=== PATIENT | female | born 2005 ===

== ENCOUNTER 2025-05-04 09:50 | Emergency (ER) | payer BC, SELFPAY ==
--- NOTE | ~2025-05-04 | XR_ITS ---
EXAMINATION: XR CHEST CLINICAL INFORMATION: central chest pain COMPARISON: None available. TECHNIQUE: 2 views of the chest were obtained. FINDINGS: The cardiac, hilar, and mediastinal contours are normal. The lungs are clear bilaterally. There is no pneumothorax or pleural effusion. There is no focal osseous or soft tissue abnormality. XR/XR chest 2V IMPRESSION: Normal chest. Electronically signed by: Brian Cedeno MD 05/04/2025 10:26 AM EDT
--- NOTE | 2025-05-04 09:52 | ECG_ITS ---
Test Reason : cp Blood Pressure : */* mmHG Vent. Rate : 101 BPM Atrial Rate : 101 BPM P-R Int : 126 ms QRS Dur : 88 ms QT Int : 340 ms P-R-T Axes : 74 74 53 degrees QTcB Int : 440 ms Sinus tachycardia Otherwise normal ECG No previous ECGs available Referred By: Brianna Pathak Electronically Signed By: Luis Manuel Amin
[2025-05-04 10:07] VITALS: BP 00/00; PULSE 103; RESP 18; TEMP 36.6; O2SAT 100
--- NOTE | 2025-05-04 10:09 | ED.GENADULT ---
HPI - General Adult General Chief complaint: Abdominal Pain Stated complaint: CP, abd pain Time Seen by Provider: 05/04/25 12:10 Source: patient, family and RN notes reviewed Mode of arrival: ambulatory Limitations: no limitations History of Present Illness ED Provider: Reny Salguero PA-C HPI narrative: This is a 19 year old female with no known PMHx, presenting to the ED for evaluation of nausea, vomiting, and abdominal pain which started this morning. Pt states that she was feeling sick and attempted to practice lacrosse this morning and felt worse, developing nausea, vomiting, abdominal pain and chest burning sensation. She was evaluated at urgent care prior to arrival and received 8mg of sublingual zofran with minimal relief. They suggested her to come to the ED due to the multiple episodes of non-stopping vomiting. She describes persistent discomfort and a burning sensation of the chest and upper abdomen. Denies palpitations, diarrhea, constipation, headache, cough, shortness of breath, dizziness, or syncope. Last BM was this morning. No history of similar symptoms, recent illness, sick contacts, or significant medical history. Does report a history of marijuanna use, with her last usage being last night. No other drug use. No etoh use. Additionally reports feeling well last night, and consuming a chipotle bowl for dinner. No other complaints or concerns at this time. MD complaint: Abdominal pain, nausea, vomiting Onset (ago): hour(s) Radiation: non-radiation Pain Consistency: constant Relieving factors: none Exacerbating factors: none Treatments prior to arrival: other (zofran 8mg) Related Data Previous Rx's ?Medication ?Instructions ?Recorded ondansetron 4 mg disintegrating 4 mg PO Q6H PRN nausea and 05/04/25 tablet vomiting #12 tabs Allergies Allergy/AdvReac Type Severity Reaction Status Date / Time No Known Allergies Allergy Verified 05/04/25 10:09 Review of Systems Review of Systems: Constitutional : No Fever, No Chills ENT/Mouth : No sore throat, No Rhinorrhea Eyes: No Eye Pain, No Swelling, No Redness Cardiovascular : No Chest Pain, No SOB Respiratory : No Cough, No Sputum Gastrointestinal : + Nausea, +Vomiting, No Diarrhea, + abdominal Pain Genitourinary : No Dysuria, No Hematuria Musculoskeletal : No joint pain, No Myalgias, No Joint Swelling Skin : No Skin Lesions Neuro : No Weakness, No Numbness, No Headache All other systems reviewed and are negative Yes all other systems are reviewed and are negative Constitutional: Constitutional: Reports as per [facility] Past Medical History Attestation statement: The following information was validated with the patient. Social History Social History Advance Directives: No Advance Directives Information Provided: Yes Do you have a plan to hurt others: No Plan Physical Exam ED Vital Signs: Vital Signs - 24 hr 05/04/25 17:35 Temperature 98.4 F Pulse Rate 89 Respiratory Rate 17 Blood Pressure 124/68 Pulse Oximetry 100 Oxygen Delivery Method Room Air BMI result Body Mass Index 20.0 Const General: cooperative, acute distress, anxious, diaphoretic, ill appearing and tired appearing Orientation/consciousness: patient oriented x3 Limitations: no limitations HENMT Head: Yes normal to inspection, Yes normocephalic and Yes atraumatic Ears: hearing grossly normal bilaterally General nose exam: Normal external nose present Face and sinus: Yes normal facial exam Mouth: Normal oral and palatal mucosa present, oropharynx normal and moist mucous membranes Throat: Yes posterior oropharynx normal Eyes General: appearance normal, both eyes and all related structures Eyelids: Yes eyelids normal Conjunctivae: conjunctivae normal Sclerae: sclerae normal Pupils: Equal, round and reactive pupils present EOM: EOMs intact bilaterally Neck Neck: Yes normal visual inspection, Yes full ROM and Yes no lymphadenopathy Lymphatic: no lymphadenopathy noted Chest Chest palpation & inspection: normal inspection of the chest Resp Effort & Inspection: normal respiratory effort and able to speak in complete sentences Auscultation: clear to auscultation bilaterally, no crackles, no rales, no rhonchi and no wheezes Cardio Jugular venous distension: no JVD Rate: regular rate Rhythm: regular rhythm Heart sounds: S1 normal heart sound present and S2 normal heart sound present GI Other: Abdomen is soft, nontender, nondistended. Inspection: Yes normal to inspection Palpation (GI): Soft to palpation, nontender and no guarding Auscultation: normal bowel sounds Skin General skin exam: no rashes or lesions noted Trauma: no lacerations or abrasions Wounds: no wounds Neuro General: patient oriented x3 Cranial nerves: Yes Equal, round and reactive pupils present Extrem General: Yes normal to inspection Right upper extremity: normal to inspection Left upper extremity: normal to inspection Right lower extremity: normal to inspection Left lower extremity: normal to inspection Course Course Course Narrative: This is a Rapid Medical Examination (RME) performed by Roger Baird PA-C in triage. Full HPI, ROS, assessment and treatment plan per primary provider in the Main ED. Hx: 19 yo F here for eval of epigastric adominal pain described as a burning sensation radiating to her chest which began while at [employer] practice. assoc nausea and vomiting. seen at [facility], given 8mg zofran, attempted maalox however patient refused as she cannot tolerate PO. no sick contacts. denies any injury/ strike during practice. PE/vitals: uncomfortable appearing Plan: labs, viral swabs, ekg, cxr Medications Administered Discontinued Medications Generic Name Dose Route Start Last Admin Trade Name Freq PRN Reason Stop Dose Admin Diphenhydramine HCl 12.5 mg 05/04/25 12:21 05/04/25 12:56 Diphenhydramine Hcl 50 Mg/Ml Vial IVPUSH 05/04/25 12:22 12.5 mg ONCE ONE Administration Droperidol 0.625 mg 05/04/25 14:09 05/04/25 14:28 Droperidol 5 Mg/2 Ml Vial IVPUSH 05/04/25 14:10 0.625 mg ONCE ONE Administration Famotidine 20 mg 05/04/25 14:05 05/04/25 14:27 Famotidine/Pf 20 Mg/2 Ml Vial IVPUSH 05/04/25 14:06 20 mg ONCE ONE Administration Sodium Chloride 1,000 mls @ 999 mls/hr 05/04/25 12:17 05/04/25 13:57 Ns IV 05/04/25 13:17 Infused .Q1H1M ONE Infusion Acetaminophen 1,000 mg in 100 mls @ 400 mls/hr 05/04/25 14:05 05/04/25 14:42 Ofirmev IV 05/04/25 14:19 Infused ONCE ONE Infusion Sodium Chloride 1,000 mls @ 999 mls/hr 05/04/25 14:07 05/04/25 15:28 Ns IV 05/04/25 15:07 Infused .Q1H1M ONE Infusion Metoclopramide HCl 10 mg 05/04/25 12:21 05/04/25 12:56 Metoclopramide Hcl 10 Mg/2 Ml Vial IVPUSH 05/04/25 12:22 10 mg ONCE ONE Administration Medical Decision Making Medical Decision Making [facility] Narrative: This is a 19 year old female with no PMH, presenting to the ED for evaluation of sudden onset burning upper abdominal and chest pain that began this morning. Most likely diagnosis at this time is viral gastroenteritis or gastritis due to sudden onset of nausea and vomiting, elevated white blood cell counts, and self reported fever and chills. Gastroparesis considered due to cycling vomiting., but less likely due to abrupt onset. Cannabis hyperemesis syndrome considered due to cannabis consumption the night prior but less likely due to systemic symptoms and elevated white blood cell counts. GERD considered due to epigastric burning pain and vomiting, but less likely due to abrupt onset and systemic symptoms. 2:24 PM 05/04/2025 (Reny Salguero PA-C): Re-evaluated, not feeling any better, will medicate with tylenol, droperidol, and Pepcid. 5:21 PM 05/04/2025 (Reny Salguero PA-C): Patient is feeling much better after receiving all these medications, UA returns, noninfectious. Symptoms likely cyclical vomiting in nature and or gastroenteritis. She is tolerating p.o. without difficulty. No vomiting since droperidol. Patient feeling well enough to be discharged home. Patient given strict return precautions, mother and patient understand and agree with this plan. Patient stable for discharge. Differential Diagnosis Differential Diagnoses: The differential diagnosis associated with the presentation includes See above Admission/Observation Consideration of admission/observation: Escalation of care including admission/observation considered Lab Data [facility] Lab Attestation statement: I reviewed the patient's lab results. Slight leukocytosis at 11, likely reactive in nature, slightly hyperglycemic at 127 > non fasting. AST and ALT slightly elevated at 33 and 32, troponin with negative delta change. Patient not , urine does not appear to be infectious. COVID, flu, and strep negative. 05/04/25 10:05/04/25 10:29 Labs: Lab Results 05/04/25 05/04/25 05/04/25 Range/Units 10: 12:37 16:44 WBC 11.0 H (4.8-10.8) X10*3/uL RBC 4.23 (4.20-5.50) X10*6/uL Hgb 12.4 (12.0-16.0) g/dl Hct 37.4 (37.0-47.0) % MCV 88.4 (80.0-98.0) fL MCH 29.3 (27.0-33.0) pg MCHC 33.2 (31.0-35.0) g/dl RDW 12.4 (11.0-16.0) % Plt Count 221 (160-400) X10*3/uL MPV 9.7 (9.4-12.3) fL Immature Gran % (Auto) 0.3 (0.0-0.4) % Neut % (Auto) 81.1 H (45-73) % Lymph % (Auto) 13.6 L (20-40) % Perkins % (Auto) 4.6 (2-11) % Eos % (Auto) 0.1 (0-4) % Baso % (Auto) 0.3 (0-2) % Lymph # (Auto) 1.5 (1.2-4.9) X10*3/uL Perkins # (Auto) 0.5 (0.1-1.2) X10*3/uL Eos # (Auto) 0.0 (0.0-0.4) X10*3/uL Baso # (Auto) 0.0 (0.0-0.2) X10*3/uL Abs Immat Gran (auto) 0.03 (0.00-0.03) X10*3/uL Absolute Neuts (auto) 9.0 H (2.0-8.3) x10*3/uL Absolute Nucleated RBC 0.000 (0.0-0.012) X10*3/uL Nucleated RBC % (auto) 0.0 (0.0-0.2) /100WBC Sodium 139 (135-145) mmol/L Potassium 3.6 (3.3-5.1) mmol/L Chloride 108 (96-108) mmol/L Carbon Dioxide 20 L (22-29) mmol/L Anion Gap 15 (12-20) BUN 7 L (9-16) mg/dL Creatinine 0.68 (0.5-1.4) mg/dL Estim Creat Clear Calc 106.8 Estimated GFR > 60 Random Glucose 127 H (60-115) mg/dL Calcium 9.7 (8.4-10.2) mg/dL Magnesium 1.9 (1.6-2.6) mg/dL Total Bilirubin 0.3 (0.0-1.0) mg/dL AST 33 H (5-31) U/L ALT 32 H (0-31) U/L Alkaline Phosphatase 53 (39-117) U/L Troponin I High Sens 5.9 7.0 (<3.5-17.0) ng/L Total Protein 8.1 H (6.5-8.0) g/dL Albumin 4.8 (3.5-5.0) g/dL Lipase 13 (8-78) U/L Beta HCG, Quant < 2 mIU/mL Urine Color Yellow Urine Appearance Clear Urine pH 8.5 (5.0-9.0) Ur Specific [place] 1.025 (1.005-1.025) Urine Protein Negative (Neg-Trace) mg/dL Urine Glucose (UA) Negative (Negative) mg/dL Urine Ketones 40 (Negative) mg/dL Urine Blood Negative (Negative) Urine Nitrite Negative (Negative) Ur Leukocyte Esterase Negative (Negative) COVID-19 (JOSE CARLOS) Negative (Negative) COVID-19 Clin Com See Note Influenza Type A (SIRI) Negative (Negative) Influenza Type B (SIRI) Negative (Negative) Influenza A & B Note See Note S. pyogenes GrpA SIRI Negative (Negative) Independent Interpretation I performed an independent interpretation of an: EKG Interpretation: Age you sinus tachycardia at a ventricular rate of 101 beats per minute, MD interval 126, QT QTC 340/440, no STEMI. Radiology Impression Discussion of test interpretation with radiology: I have reviewed the radiologist's reading. Radiologist Impression: EXAMINATION: XR CHEST CLINICAL INFORMATION: central chest pain COMPARISON: None available. TECHNIQUE: 2 views of the chest were obtained. FINDINGS: The cardiac, hilar, and mediastinal contours are normal. The lungs are clear bilaterally. There is no pneumothorax or pleural effusion. There is no focal osseous or soft tissue abnormality. XR/XR chest 2V IMPRESSION: Normal chest. Electronically signed by: Brian Cedeno MD 05/04/2025 10:26 AM EDT External Record Review External record reviewed: Inpatient record, Office record, Outpatient record, Prior outpatient labs, Prior outpatient radiology, Primary care record and Outside ED record Discharge Plan Discharge Clinical Impression: Nausea & vomiting Patient Disposition: Home, Self-Care Instructions: Acute Nausea and Vomiting (ED), Cyclic Vomiting Syndrome (ED) Additional Instructions: You were seen in the emergency department after having nausea and vomiting. Your workup today was reassuring. You may be experiencing a stomach virus and or something called cyclical vomiting syndrome. Cyclical vomiting syndrome can be caused by marijuana use. Please avoid marijuana use as this can cause you to have the symptoms. Stick to a bland diet over the next several days. Avoid spicy or fried foods. Avoid dairy containing products. Drink plenty of fluids get plenty of rest. May take Zofran as needed for nausea. Use this only as directed. Please follow-up with the primary care physician. If any new or worsening symptoms occur including but not limited to recurrent nausea and vomiting, severe abdominal pain, severe chest pain, please seek emergent care. Prescriptions: New ondansetron 4 mg tablet,disintegrating 4 mg PO Q6H PRN (Reason: nausea and vomiting) Qty: 12 0RF Stand Alone Forms: Work/School Release Interventions: ED Discharge Assessment Last Done: 05/04/25 17:35 Discharge Date/Time: 05/04/25 17:36 Print Language: Pashto
[2025-05-04 10:37] LABS: MANUAL DIFF FLAG NO
[2025-05-04 10:39] LABS: Hematocrit 37.4 % (37.0-47.0); Hemoglobin 12.4 g/dl (12.0-16.0); Imm Gran Abs Auto 0.03 X10*3/uL (0.00-0.03); Imm Gran Pct Auto 0.3 % (0.0-0.4); Lymphocytes Absolute Auto 1.5 X10*3/uL (1.2-4.9); Mean Corpuscular HGB Conc 33.2 g/dl (31.0-35.0); Mean Corpuscular Hemoglobin 29.3 pg (27.0-33.0); Mean Corpuscular Volume 88.4 fL (80.0-98.0); NRBC Abs Auto 0.000 X10*3/uL (0.0-0.012); NRBC Pct Auto 0.0 /100WBC (0.0-0.2); Platelet Count 221 X10*3/uL (160-400); Red Blood Count 4.23 X10*6/uL (4.20-5.50); White Blood Count 11.0 X10*3/uL (4.8-10.8)
[2025-05-04 10:55] LABS: IDNOW Serial# 08D9AD1C; Strep A Nucleic Acid Negative (Negative)
[2025-05-04 10:56] LABS: COVID-19 Test Negative (Negative); IDNOW Serial# 55D5AD1C
[2025-05-04 10:57] LABS: IDNOW Serial# 58CA691E; Influenza B2 Negative (Negative)
[2025-05-04 11:00] LABS: Troponin-I High Sensitivity 5.9 ng/L (<3.5-17.0)
[2025-05-04 11:03] LABS: Alanine Aminotransferase 32 U/L (0-31); Albumin Level 4.8 g/dL (3.5-5.0); Alkaline Phosphatase 53 U/L (39-117); Anion Gap 15 (12-20); Aspartate Amino Transferase 33 U/L (5-31); Blood Urea Nitrogen 7 mg/dL (9-16); Calcium 9.7 mg/dL (8.4-10.2); Carbon Dioxide 20 mmol/L (22-29); Chloride 108 mmol/L (96-108); Creatinine Clr Calc Pharmacy 106.8; Estimated Glomerular Filt Rate > 60; Lipase 13 U/L (8-78); Magnesium 1.9 mg/dL (1.6-2.6); Potassium 3.6 mmol/L (3.3-5.1); Sodium 139 mmol/L (135-145); Total Protein 8.1 g/dL (6.5-8.0)
[2025-05-04 12:29] VITALS: BP 141/61; PULSE 83; RESP 18; TEMP 36.6; O2SAT 100
[2025-05-04 13:00] LABS: Troponin-I High Sensitivity 7.0 ng/L (<3.5-17.0)
[2025-05-04 14:50] VITALS: BP 125/78; PULSE 87; RESP 18; TEMP 36.8; O2SAT 99
--- OUTSIDE RECORDS SUMMARY | 2025-05-04 14:50 | XMS_ITS | Clinical Summary ---
Author Organization [facility] Address [address] [place] [address] Care Team Providers Care Drying And Winding Supervisor Name Role Phone Tommy Rogers Primary Care Provider [phone] Source Comments PLEASE NOTE, if this patient is a minor, it may be UNLAWFUL to discuss sensitive information that is contained in these records (such as FAMILY PLANNING, MENTAL HEALTH or SUBSTANCE ABUSE) with the minor patient's parent or other person without the patient's specific authorization.[facility] Allergies No known active allergies Medications No known medications Active Problems Problem Noted Date Diagnosed Date Encounter for routine child health examination without abnormal findings 03/11/2019 Weight loss observed on examination 03/11/2019 Overview (03/11/2019): 03/11/19 - Wt Readings from Last 2 Encounters: 03/11/19 137 lb 14.4 oz (62.6 kg) (85 %, Z= 1.05)* 03/05/18 152 lb (68.9 kg) (95 %, Z= 1.66)* * Growth percentiles are based on [facility] (Girls, 2-20 Years) data. Immunizations Immunization Administration Dates Next Due DTAP (DAPTACEL),5 PERTUSSIS ANTIGENS 03/2010,06/18/2006,07/09/2005,05/06,02/14/2005 HEP B, PED/ADOL ([id number]/RECOMBIVAX-PEDS) 07/09/2005,05/06/2005,02/14/2005,12/08 HPV 9 (Gardasil) 04/12/2019,03/11/2019 Hep A, Ped/adol, 2 Dose 03/11/2019,04/17/2018 Hib (HbOC) 06/18/2006, 5,05/06/2005,02/14 INFLUENZA, SEASONAL, INJECTABLE 05/30/20 08,05/26/2007,06/18/2006,07/09 IPV (IPOL) 09/26/2009, 5,05/06/2005,02/14 MENINGOCOCCAL MCV4P (MENACTRA) 02/14/2016 MMR (MMR II/Priorix) 09/26/2009,01/28/2006 PNEUMOCOCCAL CONJUGATE PCV 7 06/18/2006, 07/09/2005,05/06/2005,02/14 TDAP 02/14/2016 Varicella (Varivax), Live Vaccine 09/26/2009,05/2006 Family History Medical History Relation Name Comments Other (See Comments) Mother Relation Name Status Comments Father Alive Mother Alive Social History Tobacco Use Types Packs/Day Years Used Date Smoking Tobacco: Never Smokeless Tobacco: Never Alcohol Use Standard Drinks/Week Comments Never 0 (1 standard drink = 0.6 oz pur e alcohol) Social Connections Answer Date Recorded Social Connections and Isolation 0 03/08/2019 Financial Resource Strain Answer Date R ecorded Financial Resource Strain 0 2018 Stress Answer Date Recorded Stress 0 03/08/2019 Physical Activity Answer Date Recorded Physical Activity 0 03/08/2019 Food Insecurity Answer Date Recorded Food 0 03/08/2019 Transportation Needs Answer Date Record ed Transportation 0 03/08/2019 Housing Stability Answer Date Recorded Housing 0 03/08/2019 Safety and Environment Answer Date Ryan rded Safety 0 03/08/2019 Utilities Answer Date Recorded Utilities 0 03/08/2019 Employment Answer Date Recorded Employment 0 03/08/2019 Comments No Sex and Gender Information Value Date Recorded Sex Assigned at Not on file Legal Sex Female 8:21 AM PDT Gender Identity Not on file Sexual Orientation Not on file Last Filed Vital Signs Vital Sign Reading Time Taken Comments Blood Pressure 98/60 03/11/2019 3:53 PM EDT Pulse 74 03/11/2019 3:53 PM EDT Temperature 36.9 C (98.5 F) 03/11/2019 3:53 PM EDT Respiratory Rate 19 03/05/2018 11:3 4 AM EDT Oxygen Saturation 99% 03/11/2019 3:53 PM EDT Inhaled Oxygen Concentration - - Weight 62.6 kg (137 lb 14.4 oz) 03/11/2019 3:53 PM EDT Height 159 cm (5' 2.6 ) 03/11/2019 3:53 PM EDT Body Mass Index 24.74 03/11/2019 3:53 PM EDT Plan of Treatment Health Maintenance Due Date Last Done Comments Anxiety Screening 2004 Hepatitis C Screening 2004 Tobacco Screening 2004 Chlamydia Screening 03/05/2019 03/05/2018 Gonorrhea Screening 03/05/2019 03/05/2018 Imm-HPV (3 - 2-dose series) 09/11/2019 04/12/2019, 0 03/11/2019 HIV Screening 12/08/2019 Relationship Safety Screening/Counseling 12/08/2019 Hypertension Screening (#1) 03/10/2020 Alcohol and Drug Screen 07/21/2024 03/11/2019, 03/05 Depression Annual Screen 07/21/2024 03/11/2019, 02/18 [id number] ( season) 2025 Imm-Influenza (#1) 2025 05/30/2008, 1 07/26/2006, 06/18/2006, Additional history exists Imm-DTaP/Tdap/Td (7 - Td or Tdap) 02/13/2026 02/14/2016, 09/26/2009, 06/18/2006, Additional history exists Imm-Hepatitis B Completed 07/09/2005, 04/20, 02/14/2005, Additional history exists Imm-MMR Completed 09/26/2009, 01/28/2006 Imm-Varicella Completed 09/26/2009, 01/28/2006 Imm-Hepatitis A Completed 03/11/2019, 04/17/2018 Procedures Procedure Name Priority Date/Time Associated Diagnosis Comments GC DNA PROBE, URINE Routine 03/05/2018 1 2:00 AM EDT Encounter for routine child health examination without abnormal findings CHLAMYDIA DNA PROBE, URINE Routine 03/05/2018 12:00 AM EDT Encounter for routine child health examination without abnormal findings from Last 3 Months or Most Recently Relevant to Health Maintenance Results * GC DNA PROBE, URINE ([facility]) (03/05/2018 12:00 AM EDT) GC DNA URINE NEGATIVE NEGATIVE [facility] Urine specimen (specimen) Urine specimen / Unknown 03/05/2018 03/05/2018 8:13 PM EDT [facility] - 03/06/2018 2:25 PM EDT [facility] [address] [place] [address] PT ID [id number] ORD# [id number] [facility] - MICROBIOLOGY AMBULATORY Final Result Performing Organization Address City/[facility]/ZIP Co de Phone Number [facility] [address] [place] [address], [place] [phone] * CHLAMYDIA DNA PROBE, URINE ([facility]) (03/05/2018 12:00 AM EDT) CHLAMYDIA DNA URINE NEGATIVE NEGATIVE [facility] Urine specimen (specimen) Urine specimen / Unknown 03/05/2018 03/05/2018 8:13 PM EDT [facility] - 03/06/2018 2:25 PM EDT [facility] [address] [place] [address] PT ID [id number] ORD# [id number] [facility] - MICROBIOLOGY AMBULATORY Final Result Performing Organization Address [facility] Co de Phone Number [facility] [address] [place] [address], [place] [phone] from Last 3 Months or Most Recently Relevant to Health Maintenance Insurance [facility] Care Teams Drying And Winding Supervisor Relationship Specialty Start Date End Date Tommy Rogers PA [address] [place] [address] PCP - General Internal Medicine 01/30/18
[2025-05-04 16:41] VITALS: BP 124/68; PULSE 89; RESP 17; O2SAT 100
[2025-05-04 16:54] LABS: Appearance Urine Clear; Glucose Urine UA Negative (Negative); PH 8.5 (5.0-9.0); Specific Gravity - Urine 1.025 (1.005-1.025)
[2025-05-04 17:35] VITALS: BP 124/68; PULSE 89; RESP 17; TEMP 36.9; O2SAT 100
== END 2025-05-04 17:36 | disposition home or self-care (01) ==
PROVIDERS: Physician Assistant Medical; Emergency Provider Emergency Medicine
DX: R07.89 Other chest pain (principal); R10.22 Pelvic and perineal pain left side; R11.2 Nausea with vomiting, unspecified; Z79.899 Other long term (current) drug therapy; Z11.52 Encounter for screening for COVID-19
CPT/HCPCS: 36415; 71046; 80053; 81003; 83690; 83735; 84484; 84702; 85025; 87502; 87635; 87651; 93005; 96361; 96374; 96375; 99284; J0131; J1200; J1308; J1790; J2765

== ENCOUNTER → 2025-05-04 09:52 | Outpatient (BNV) | payer BC, SELFPAY | PROVIDERS: Emergency Provider Emergency Medicine; Visit Provider Internal Medicine Cardiovascular Disease | DX: R00.0 Tachycardia, unspecified (principal) | CPT/HCPCS: 93010 ==

== ENCOUNTER → 2025-05-04 10:08 | Outpatient (BNV) | payer BC, SELFPAY | PROVIDERS: Visit Provider Radiology Diagnostic Radiology | DX: R07.2 Precordial pain (principal) | CPT/HCPCS: 71046 ==